=== PATIENT | female | born 1990 | race Caucasian/White ===

== ENCOUNTER → 2019-06-29 16:39 | Outpatient (CLI) | payer BC, SELFPAY ==
[2019-06-29 18:30] LABS: Glucose Challenge Gest 1H 50g 71 mg/dL (70-140)
[2019-06-30 09:25] LABS: Hepatitis C Antibody Non-Reactive (Nonreactive)
[2019-07-02 11:31] LABS: Toxoplasma Gondii IgG < 3.0 IU/mL (0.0-7.1); Toxoplasma Gondii IgM < 3.0 AU/mL (0.0-7.9)
== END ==
PROVIDERS: Family Provider Family Medicine; PCP Family Medicine; Visit Provider Advanced Practice Midwife
DX: Z34.82 Encounter for supervision of other normal pregnancy, second trimester (principal)
CPT/HCPCS: 36415; 82950; 86777; 86778; 86803

== ENCOUNTER → 2019-09-20 09:03 | Outpatient (CLI) | payer BC, SELFPAY ==
[2019-09-20 10:50] LABS: Hematocrit 37.3 % (37-47); Hemoglobin 12.9 g/dL (12.0-15.0); Mean Corp Hgb Conc 34.6 g/dL (32-36); Mean Corpuscular Hgb 30.1 pg (27.0-32.0); Mean Corpuscular Volume 86.9 fL (81-99); Mean Platelet Vol. 11.6 fl (6.2-12.0); Platelet Count 169 K/mm3 (150-450); RBC Distribution Width CV 13.1 % (11.6-14.6); RBC Distribution Width SD 41.1 fl (35.1-43.9); Red Blood Count 4.29 M/mm3 (4.2-5.4); White Blood Count 8.9 K/mm3 (4.4-11.0)
[2019-09-20 11:11] LABS: Glucose Challenge Gest 1H 50g 80 mg/dL (70-140); Thyroid Stim Hormone (TSH) 1.01 uIU/mL (0.358-3.74)
== END ==
PROVIDERS: PCP Family Medicine; Visit Provider Obstetrics & Gynecology
DX: Z34.82 Encounter for supervision of other normal pregnancy, second trimester (principal)
CPT/HCPCS: 36415; 82950; 84443; 85027

== ENCOUNTER → 2019-11-17 | Outpatient (CLI) | payer BC, SELFPAY ==
[2014-09-28 14:47] VITALS: BMI 48.0
== END | disposition home or self-care (01) ==
LOC: LABSPEC 15:06
PROVIDERS: PCP Family Medicine; Referring Provider Obstetrics & Gynecology; Visit Provider Obstetrics & Gynecology
DX: Z36.85 Encounter for antenatal screening for Streptococcus B (principal)
CPT/HCPCS: 87081

== ENCOUNTER 2019-12-11 18:45 | Inpatient (IN) | payer BC, SELFPAY ==
[2014-09-28 14:47] VITALS: BMI 48.0
[2019-12-11] VITALS (11 sets, daily range): BP systolic 114–121; BP diastolic 64–70; PULSE 70–84; TEMP 36.2; O2SAT 96–99; BMI 51.2
[2019-12-11] MEDS: 0.9% Saline Lock 10 ML Syringe IV ×2 (20:05→22:27)
[2019-12-11 20:26] LABS: Absolute Lymphocyte Count 2.05 X10^3/uL (0.83-4.51); Absolute Neutrophil Count 6.4 X10^3/uL (2.0-7.7); Basophil# 0.01 X10^3/uL; Basophil% 0.1 % (0-1); Eosinophil# 0.04 X10^3/uL; Eosinophils% 0.4 % (0-5); Hematocrit 36.3 % (37-47); Hemoglobin 12.5 g/dL (12.0-15.0); Lymphocyte # 2.05 X10^3/ul (4.0); Lymphocyte % 22.3 % (19-41); Mean Corp Hgb Conc 34.4 g/dL (32-36); Mean Corpuscular Hgb 30.2 pg (27.0-32.0); Mean Corpuscular Volume 87.7 fL (81-99); Mean Platelet Vol. 12.1 fl (6.2-12.0); Monocyte# 0.62 X10^3/uL; Monocyte% 6.7 % (0-10); NRBC Flagged by Analyzer 0 % (0-5); Neutrophil # 6.44 X10^3/uL (2.7-7.7); Neutrophil % 70.1 % (47-70); Platelet Count 149 K/mm3 (150-450); RBC Distribution Width CV 12.8 % (11.6-14.6); RBC Distribution Width SD 40.5 fl (35.1-43.9); Red Blood Count 4.14 M/mm3 (4.2-5.4); White Blood Count 9.2 K/mm3 (4.4-11.0)
[2019-12-11] MEDS: Lactated Ringers 1,000 ML 200 ML IV (20:28)
[2019-12-11] MEDS: miSOPROStol 25 MCG TABLET VAGINAL (21:18)
--- NOTE | 2019-12-11 21:23 | HP.PCM_ITS ---
- Problem List (1) 39 weeks gestation of Status: Acute (2) Maternal obesity affecting , antepartum Status: Acute History Date of Admission: 12/11/19 Final FADY: 12/15/19 Final FADY Source: US <20 weeks Gestational age: 39 Weeks and 3 Days History of this : This is a 29 year-old, G [1], P [0], at 39 weeks gestational age here for IOL related to maternal morbid obesity. Allergies amoxicillin Allergy (Verified 12/11/19 19:55) Rash Sulfa (Sulfonamide Antibiotics) Allergy (Verified 12/11/19 19:55) Rash Home Medications: Home Medications Citalopram [Celexa] 20 mg PO DAILY 12/11/19 Vits [Prenatabs FA] 1 tab PO DAILY 12/11/19 Smoking Status: Never smoker Alcohol: None Number of Fetus(es): 1 NST - FHR Rate Baby A Baseline: 130 Variability:: Moderate Accelerations:: 15 x 15 Decelerations:: None NST Reactive:: Yes FHR Category:: Category I Uterine Activity:: irritability History Past Pregnancies: Past Pregnancies: none Labs: Mom's Microbiology 12/11/19 20:30 Mucosa - Nasopharyngeal Coronavirus COVID-19 PCR - Pending Mom's Labs & Results 12/11/19 12/11/19 20:05 20:05 WBC 9.2 RBC 4.14 L Hgb 12.5 Hct 36.3 L MCV 87.7 MCH 30.2 MCHC 34.4 RDW Std Deviation 40.5 RDW Coeff of Brian 12.8 Plt Count 149 L MPV 12.1 H Immature Gran % (Auto) 0.400 Neut % (Auto) 70.1 H Lymph % (Auto) 22.3 Coffee % (Auto) 6.7 Eos % (Auto) 0.4 Baso % (Auto) 0.1 Absolute Neuts (auto) 6.4 Absolute Lymphs (auto) 2.05 Nucleated RBC % 0 Blood Type O POSITIVE Antibody Screen NEGATIVE Course Did the patient receive Yes care? Labs Blood Type: O RH: POSITIVE RPR/VDRL/Syphilis Nonreactive Rubella status Immune HbSAg Negative Date Done: 04/19/19 Chlamydia Negative Gonorrhea Negative HIV/AIDS Non-Reactive Group B Strep: Negative Current Obstetrical History Gestational Diabetes No Incompetent Cervix No Infertility No IUGR No Macrosomia No Hypertension/Pre-eclampsia No Placenta Previa/Abruption No PTL/PROM No Uterine anomaly No Oligohydramnios No Polyhydramnios No Multiple gestation No Past Medical History Asthma No Diabetes No Hypertension No Heart disease No Mitral valve prolapse No Neurologic/Seizure disorder/ No Migraines Kidney disease No Liver disease No Varicosities No Clotting disorders/Hx of DVT Yes: pulmonary [id number] Thyroid Dysfunction No Other medical diseases No Psychiatric disorders No Major trauma No Abnormal PAP smear No Sleep apnea No Mammogram in the last 2 years No Social History Marital Status: Alleged father Liam Sibley Hx Smoking No Smoking Status Never smoker Expected Infant Delivery Method: Spontaneous Vaginal Describe any other labor & delivery plans:: plan on chart Number of Visits: 9 Review of Systems Constitutional: Denies: Chills, Fever, Weight Change HEENT: Denies: Head Aches, Sinus Congestion, Sinus Drainage Cardiovascular: Denies: Chest Pain, Palpitations Respiratory: Denies: Cough, Shortness of breath at rest, Sputum production Gastrointestinal: Denies: Abdominal Pain, Nausea, Vomiting Genitourinary: Denies: Dysuria Musculoskeletal: Denies: Joint Pain, Joint Tenderness Skin: Denies: Rash, Wounds Neurological: Denies: Numbness, Tingling, Focal weakness Psychiatric: Denies: Anxiety, Depression, Homicidal Ideations, Suicidal Ideations Hematologic/ Lymphatic: Denies: Easy Bruising, Easy Bleeding Physical Exam Vitals: Vital Signs Temp Pulse BP Pulse Ox 97.1 F L 71 121/70 H 98 12/11/19 20:33 12/11/19 21:16 12/11/19 19:58 12/11/19 21:16 General: Alert, Oriented x3, No apparent distress HEENT: Atraumatic, Normocephalic. Negative for: Thyromegaly, Lymphadenopathy Cardiovascular: Regular rate, Regular Rhythm Lungs: Clear to auscultation Abdomen: Bowel Sounds Present, Gravid Neurological: Deep Tendon Reflexes 2+/4 and Symmetrical, Neuro grossly intact FORM SETTER: Normal external genitalia. Negative for: Vulvar lesions Estimated gestational size: Appropriate for gestational size Presentation: Cephalic Cervix Dilation (cm): 1 Station: -3 Effacement (%): 25 Assessment/Plan All Active Problems 39 weeks gestation of (Acute) Maternal obesity affecting , antepartum (Acute) This is a 29 year-old, G [1], P [0], at 39 weeks gestational age. Cytotec IOL related to maternal obesity NST Category I, reactive Continuous FM Plan Covid-19 rule out testing preventatively plan on chart Plans in place for Essential Procedure Criteria Procedure Essential: Yes Criteria Note: On 10/03/2019 the [facility] ([facility]) Public Order signed by [facility] Director Tressa Bo M.D., regarding the Management of Non- Essential Surgeries and Procedures for the purpose of preserving Personal Protective Equipment (PPE) and critical hospital capacity and resources within [place] went into effect as of 10/04/2019 at 5:00PM. According to the [facility] Public Order: This action will remain in full force and effect until the State of Emergency declared by the Governor no longer exists or the Director of the [facility] rescinds or modifies this Order.. This [facility] order stated all non-essential or elective surgeries and procedures that utilize PPE should be delayed unless there is undue risk to the current or future health of a patient. After reviewing the aforementioned [facility] Public Order and the patients clinical case, I have determined that the scheduled procedure meets the criteria to go forward. Risk to Patient if Procedure Delayed: Threat to patient's life if surgery or procedure is delayed
[2019-12-12] VITALS (37 sets, daily range): BP systolic 96–215; BP diastolic 55–94; PULSE 62–102; TEMP 36.3–36.7; O2SAT 96–100
[2019-12-12] MEDS: miSOPROStol 50 MCG TABLET VAGINAL ×2 (01:36→07:46)
--- NOTE | 2019-12-12 07:56 | PCM.PN.OB ---
Patient Problems: Active and Suspected Problems 39 weeks gestation of (Acute) Maternal obesity affecting , antepartum (Acute) Subjective: Didn't get much sleep, but overall doing okay. Is cramping, but not painful. Objective: VSS. Uterine irritability noted. FHR baseline 135, +accels, -decels, moderate variability. Category I NST. SVe 1/40/-2 posterior moderate. - Physical Exam Vitals/I&O's: Vital Signs Temp Pulse BP Pulse Ox 97.9 F 82 116/63 98 12/12/19 07:29 12/12/19 07:22 12/12/19 07:22 12/12/19 04:51 Weight: 135.397 kg Body Mass Index (BMI) 51.2 Intake and Output for Last 24 Hours 12/10/19 12/11/19 12/12/19 23:59 23:59 23:59 Intake Total 241.67 / 241.67 Output Total 100 / 100 Balance 141.67 / 141.67 General: Alert, Oriented x3, Cooperative HEENT: Atraumatic, PERRLA, EOMI, Normocephalic Neck: Supple, No JVD, Negative Carotid Bruits Lungs: Clear to auscultation, Normal air movement Cardiovascular: Regular rate, No murmurs Abdomen: Bowel Sounds Present, Soft, Non Tender Extremities: No edema, Capillary Refill Less than 3 Seconds Skin: No rashes, No breakdown Musculoskeletal: No Tenderness to Palpation of Joints or Extremities Neurological: Cranial nerves II-XII grossly intact Psych/Mental Status: Normal Affect, Appropriate Microbiology Past 72 Hours 12/11/19 20:30 Mucosa - Nasopharyngeal Coronavirus COVID-19 PCR - Final Laboratory Results 12/11/19 20:05: WBC 9.2, RBC 4.14 L, Hgb 12.5, Hct 36.3 L, MCV 87.7, MCH 30.2, MCHC 34.4, RDW Std Deviation 40.5, RDW Coeff of Brian 12.8, Plt Count 149 L, MPV 12.1 H, Immature Gran % (Auto) 0.400, Neut % (Auto) 70.1 H, Lymph % (Auto) 22.3, Marshall % (Auto) 6.7, Eos % (Auto) 0.4, Baso % (Auto) 0.1, Absolute Neuts (auto) 6.4, Absolute Lymphs (auto) 2.05, Nucleated RBC % 0 12/11/19 20:05: Blood Type O POSITIVE, Antibody Screen NEGATIVE Current Medications Acetaminophen (Tylenol) 325 - 650 mg PO Q4H PRN PRN PRN Reason: Pain Score 1-3/10 Al Hydroxide/Mg Hydroxide (Mylanta Ii) 15 - 30 ml PO Q4H PRN PRN PRN Reason: INDIGESTION Citric Acid/Sodium Citrate (Bicitra) 30 ml PO X1 PRN PRN Reason: Section Fentanyl Citrate (Sublimaze (100mcg Ampule)) 25 - 50 mcg IV Q2H PRN PRN PRN Reason: Pain Score 4-10/10 Lactated Ringer's () 500 mls @ 999 mls/hr IV .Q31M PRN PRN Reason: Epidural Lactated Ringer's () 500 mls @ 999 mls/hr IV .Q31M PRN PRN Reason: Corrective Measures Lactated Ringer's () 1,000 mls @ 50 mls/hr IV .Q20H [facility] Last Infusion: 12/11/19 22:27 Dose: 0 mls/hr Documented by: Misoprostol (Cytotec) 50 mcg VAGINAL Q6H [facility] Last Admin: 12/12/19 07:46 Dose: 50 mcg Documented by: Ondansetron HCl (Zofran) 4 mg IV Q4H PRN PRN PRN Reason: NAUSEA Prochlorperazine Edisylate (Compazine Iv) 10 mg IV Q6H PRN PRN PRN Reason: NAUSEA Sodium Chloride () 10 - 40 ml IV X1 PRN PRN Reason: SALINE FLUSH Last Admin: 12/11/19 22:27 Dose: 10 ml Documented by: Medical Necessity - Tobacco Use Smoking Status: Never smoker Assessment/Plan All Active Problems 39 weeks gestation of (Acute) Maternal obesity affecting , antepartum (Acute) A/P: IOL continues with third dose of Cytotec to be placed now Will recheck SVE in 5 hours to reassess Expect
[2019-12-12] MEDS: 0.9% Saline Lock 10 ML Syringe IV (14:44)
[2019-12-12] MEDS: Oxytocin 30 units/NS 500 ml 30 UNITS/500 ML IV.SOLN IV (14:48)
--- NOTE | 2019-12-12 16:48 | PN.OBGYN_ITS ---
Patient Problems: Active and Suspected Problems 39 weeks gestation of (Acute) Maternal obesity affecting , antepartum (Acute) Subjective: Reporting some mild cramps, but comfortable. Objective: VSS. No contractions noted. Category I NST. SVE 2/40/-2. - Physical Exam Vitals/I&O's: Vital Signs Temp Pulse BP Pulse Ox 97.7 F L 72 109/76 97 12/12/19 20:42 12/12/19 20:42 12/12/19 20:42 12/12/19 20:42 Weight: 135.397 kg Body Mass Index (BMI) 51.2 Intake and Output for Last 24 Hours 12/10/19 12/11/19 12/12/19 23:59 23:59 23:59 Intake Total 241.67 / 241.67 43.53 / 43.53 Output Total 100 / 100 Balance 141.67 / 141.67 43.53 / 43.53 General: Alert, Oriented x3, Cooperative HEENT: Atraumatic, PERRLA, EOMI, Normocephalic Neck: Supple, No JVD, Negative Carotid Bruits Lungs: Clear to auscultation, Normal air movement Cardiovascular: Regular rate, No murmurs Abdomen: Bowel Sounds Present, Soft, Non Tender Extremities: No edema, Capillary Refill Less than 3 Seconds Skin: No rashes, No breakdown Musculoskeletal: No Tenderness to Palpation of Joints or Extremities Neurological: Cranial nerves II-XII grossly intact Psych/Mental Status: Normal Affect, Appropriate Microbiology Past 72 Hours 12/11/19 20:30 Mucosa - Nasopharyngeal Coronavirus COVID-19 PCR - Final Laboratory Results 12/11/19 20:05: Blood Type O POSITIVE, Antibody Screen NEGATIVE Current Medications Acetaminophen (Tylenol) 325 - 650 mg PO Q4H PRN PRN PRN Reason: Pain Score 1-3/10 Al Hydroxide/Mg Hydroxide (Mylanta Ii) 15 - 30 ml PO Q4H PRN PRN PRN Reason: INDIGESTION Citric Acid/Sodium Citrate (Bicitra) 30 ml PO X1 PRN PRN Reason: Section Fentanyl Citrate (Sublimaze (100mcg Ampule)) 25 - 50 mcg IV Q2H PRN PRN PRN Reason: Pain Score 4-10/10 Lactated Ringer's () 500 mls @ 999 mls/hr IV .Q31M PRN PRN Reason: Epidural Lactated Ringer's () 500 mls @ 999 mls/hr IV .Q31M PRN PRN Reason: Corrective Measures Lactated Ringer's () 1,000 mls @ 50 mls/hr IV .Q20H [facility] Last Admin: 12/12/19 18:43 Dose: Not Given Documented by: Oxytocin/Sodium Chloride () 30 units in 500 mls @ 2 mls/hr IV .Q250H [facility] Last Infusion: 12/12/19 20:33 Dose: 6 mls/hr Documented by: Ondansetron HCl (Zofran) 4 mg IV Q4H PRN PRN PRN Reason: NAUSEA Prochlorperazine Edisylate (Compazine Iv) 10 mg IV Q6H PRN PRN PRN Reason: NAUSEA Sodium Chloride () 10 - 40 ml IV X1 PRN PRN Reason: SALINE FLUSH Last Admin: 12/12/19 14:44 Dose: 10 ml Documented by: Medical Necessity - Tobacco Use Smoking Status: Never smoker Assessment/Plan All Active Problems 39 weeks gestation of (Acute) Maternal obesity affecting , antepartum (Acute) A/P: Will start Pitocin In consultation with attending Dr. Parish, will recheck SVE in 2 hours and AROM if appropriate Category I NST Induction of labor in process
--- NOTE | 2019-12-12 20:45 | PCM.PN.OB ---
Patient Problems: Active and Suspected Problems 39 weeks gestation of (Acute) Maternal obesity affecting , antepartum (Acute) Subjective: Feeling contractions every couple of minutes now. Rating them a 7/10 at their peak. Is wanting epidural at some point and hopes to get some rest tonight. Objective: VSS. AROM with clear fluids. Internal monitors placed. Afterwards SVE 3.5/60/-3 per liquefied petroleum gasfitter. UC Q1.5-2m with Pitocin at 12U. - Physical Exam Vitals/I&O's: Vital Signs Temp Pulse BP Pulse Ox 97.7 F L 72 109/76 97 12/12/19 20:42 12/12/19 20:42 12/12/19 20:42 12/12/19 20:42 Weight: 135.397 kg Body Mass Index (BMI) 51.2 Intake and Output for Last 24 Hours 12/10/19 12/11/19 12/12/19 23:59 23:59 23:59 Intake Total 241.67 / 241.67 43.53 / 43.53 Output Total 100 / 100 Balance 141.67 / 141.67 43.53 / 43.53 General: Alert, Oriented x3, Cooperative HEENT: Atraumatic, PERRLA, EOMI, Normocephalic Neck: Supple, No JVD, Negative Carotid Bruits Lungs: Clear to auscultation, Normal air movement Cardiovascular: Regular rate, No murmurs Abdomen: Bowel Sounds Present, Soft, Non Tender Extremities: No edema, Capillary Refill Less than 3 Seconds Skin: No rashes, No breakdown Musculoskeletal: No Tenderness to Palpation of Joints or Extremities Neurological: Cranial nerves II-XII grossly intact Psych/Mental Status: Normal Affect, Appropriate Microbiology Past 72 Hours 12/11/19 20:30 Mucosa - Nasopharyngeal Coronavirus COVID-19 PCR - Final Laboratory Results 12/11/19 20:05: Blood Type O POSITIVE, Antibody Screen NEGATIVE Current Medications Acetaminophen (Tylenol) 325 - 650 mg PO Q4H PRN PRN PRN Reason: Pain Score 1-3/10 Al Hydroxide/Mg Hydroxide (Mylanta Ii) 15 - 30 ml PO Q4H PRN PRN PRN Reason: INDIGESTION Citric Acid/Sodium Citrate (Bicitra) 30 ml PO X1 PRN PRN Reason: Section Fentanyl Citrate (Sublimaze (100mcg Ampule)) 25 - 50 mcg IV Q2H PRN PRN PRN Reason: Pain Score 4-10/10 Lactated Ringer's () 500 mls @ 999 mls/hr IV .Q31M PRN PRN Reason: Epidural Lactated Ringer's () 500 mls @ 999 mls/hr IV .Q31M PRN PRN Reason: Corrective Measures Lactated Ringer's () 1,000 mls @ 50 mls/hr IV .Q20H [facility] Last Admin: 12/12/19 18:43 Dose: Not Given Documented by: Oxytocin/Sodium Chloride () 30 units in 500 mls @ 2 mls/hr IV .Q250H [facility] Last Infusion: 12/12/19 20:33 Dose: 6 mls/hr Documented by: Ondansetron HCl (Zofran) 4 mg IV Q4H PRN PRN PRN Reason: NAUSEA Prochlorperazine Edisylate (Compazine Iv) 10 mg IV Q6H PRN PRN PRN Reason: NAUSEA Sodium Chloride () 10 - 40 ml IV X1 PRN PRN Reason: SALINE FLUSH Last Admin: 12/12/19 14:44 Dose: 10 ml Documented by: Medical Necessity - Tobacco Use Smoking Status: Never smoker Assessment/Plan All Active Problems 39 weeks gestation of (Acute) Maternal obesity affecting , antepartum (Acute) A/P: UC 6 in 10 minutes. Decrease Pitocin from 12u to 6u Plans epidural, okay when needed Plan to recheck SVE at time of epidural or 0000 Discussed epidural, IV Fentanyl, positions with epidural in, and laboring down Expect
[2019-12-12] MEDS: Lactated Ringers 500 ML 999 ML IV (21:28)
[2019-12-12] MEDS: fentaNYL-bupivacaine (epidural) 100 ML BAG EPIDURAL (22:26)
[2019-12-13] VITALS (34 sets, daily range): BP systolic 87–123; BP diastolic 48–67; PULSE 67–157; RESP 18; TEMP 36.2–37.4; O2SAT 94–98
[2019-12-13] MEDS: Lactated Ringers 1,000 ML 200 ML IV ×2 (00:10→06:00)
[2019-12-13] MEDS: fentaNYL-bupivacaine (epidural) 100 ML BAG EPIDURAL ×2 (02:49→07:29)
[2019-12-13] MEDS: Lactated Ringers 500 ML 999 ML IV ×2 (02:49→06:19)
[2019-12-13] MEDS: Ondansetron 4 MG/2 ML Vial IV ×2 (03:16→08:37)
--- NOTE | 2019-12-13 07:00 | PN.OBGYN_ITS ---
Patient Problems: Active and Suspected Problems 39 weeks gestation of (Acute) Maternal obesity affecting , antepartum (Acute) Subjective: Got rest overnight and feeling well this morning. Epidural is working great with no pain or pressure felt at this time. Doing well and excited. Requesting check writer salesperson to be with her for pushing. Objective: BP has ran borderline low overnight. At 0331 check writer salesperson was notified that BP was 88/49 which resolved with IV fluid bolus. At this time decelerations were noted which were recurrent and prolonged. Pitocin turned off at 0319 which resolved Category II tracing. At 0618 BP was again 87/48. Patient asymptomatic, but IV bolus given which resolved the hypotension. Nutritionalist at bedside 0650 with Category I NST at this time with UC Q5-7 minutes. Pitocin restarted at 1u. SVE /-1. - Physical Exam Vitals/I&O's: Vital Signs Temp Pulse BP Pulse Ox 97.4 F L 90 102/52 L 95 12/13/19 07:14 12/13/19 07:14 12/13/19 07:14 12/13/19 06:11 Weight: 135.397 kg Body Mass Index (BMI) 51.2 Intake and Output for Last 24 Hours 12/11/19 12/12/19 12/13/19 23:59 23:59 23:59 Intake Total 241.67 / 241.67 562.18 / 562.18 2966.37 / 2966.37 Output Total 100 / 100 200 / 200 150 / 150 Balance 141.67 / 141.67 362.18 / 362.18 2816.37 / 2816.37 General: Alert, Oriented x3, Cooperative HEENT: Atraumatic, PERRLA, EOMI, Normocephalic Neck: Supple, No JVD, Negative Carotid Bruits Lungs: Clear to auscultation, Normal air movement Cardiovascular: Regular rate, No murmurs Abdomen: Bowel Sounds Present, Soft, Non Tender Extremities: No edema, Capillary Refill Less than 3 Seconds Skin: No rashes, No breakdown Musculoskeletal: No Tenderness to Palpation of Joints or Extremities Neurological: Cranial nerves II-XII grossly intact Psych/Mental Status: Normal Affect, Appropriate Microbiology Past 72 Hours 12/11/19 20:30 Mucosa - Nasopharyngeal Coronavirus COVID-19 PCR - Final Current Medications Acetaminophen (Tylenol) 325 - 650 mg PO Q4H PRN PRN PRN Reason: Pain Score 1-3/10 Al Hydroxide/Mg Hydroxide (Mylanta Ii) 15 - 30 ml PO Q4H PRN PRN PRN Reason: INDIGESTION Citric Acid/Sodium Citrate (Bicitra) 30 ml PO X1 PRN PRN Reason: Section Ephedrine Sulfate () 10 mg IV Q10M PRN PRN Reason: hypotension Ephedrine Sulfate () 10 mg IM Q30M PRN PRN Reason: hypotension Fentanyl Citrate (Sublimaze (100mcg Ampule)) 25 - 50 mcg IV Q2H PRN PRN PRN Reason: Pain Score 4-10/10 Fentanyl/Bupivacaine/Sodium Chlor () 0 ml EPIDURAL UD [facility]; Protocol Last Admin: 12/13/19 07:29 Dose: 100 ml Documented by: Lactated Ringer's () 500 mls @ 999 mls/hr IV .Q31M PRN PRN Reason: Epidural Last Infusion: 12/12/19 21:59 Dose: Infused Documented by: Lactated Ringer's () 500 mls @ 999 mls/hr IV .Q31M PRN PRN Reason: Corrective Measures Last Infusion: 12/13/19 06:50 Dose: Infused Documented by: Lactated Ringer's () 1,000 mls @ 50 mls/hr IV .Q20H [facility] Last Infusion: 12/13/19 06:50 Dose: 200 mls/hr Documented by: Oxytocin/Sodium Chloride () 30 units in 500 mls @ 2 mls/hr IV .Q250H [facility] Last Infusion: 12/13/19 07:28 Dose: 2 mls/hr Documented by: Naloxone HCl 4 mg/ Dextrose 504 mls @ 0 mls/hr IV .Q0M PRN; Protocol PRN Reason: To maintain Resp. rate >10 Nalbuphine HCl (Nubain) 5 mg IV Q3H PRN PRN PRN Reason: ITCHING Naloxone HCl (Narcan) 0.02 mg IV Q1M PRN PRN Reason: RR< 10 AND PT UNRESPONSIVE Ondansetron HCl (Zofran) 4 mg IV Q4H PRN PRN PRN Reason: NAUSEA Last Admin: 12/13/19 03:16 Dose: 4 mg Documented by: Prochlorperazine Edisylate (Compazine Iv) 10 mg IV Q6H PRN PRN PRN Reason: NAUSEA Sodium Chloride () 10 - 40 ml IV X1 PRN PRN Reason: SALINE FLUSH Last Admin: 12/12/19 14:44 Dose: 10 ml Documented by: Medical Necessity - Tobacco Use Smoking Status: Never smoker Assessment/Plan All Active Problems 39 weeks gestation of (Acute) Maternal obesity affecting , antepartum (Acute) A/P: in active labor SVE 7/-1 FHR baseline 140, +accels, -decels, moderate variability Pitocin restarted at 1u and to increase by 1u Recheck SVE 0830 Plan to labor down and have check writer salesperson present for pushing Plans in place for
[2019-12-13] MEDS: Oxytocin 30 units/NS 500 ml 30 UNITS/500 ML IV.SOLN 334 UNITS IV (11:24)
--- NOTE | 2019-12-13 11:50 | PCM.OPRPT ---
Problem List (1) 39 weeks gestation of Status: Acute (2) Maternal obesity affecting , antepartum Status: Acute Vaginal Delivery Maternal Presentation: Medically Indicated Induction Method of Induction: Cytotec Medical Reason for Induction: Maternal Medical Condition: list: - Morbid obesity Amniotic Membrane Rupture Type: Artificial Amniotic Fluid Description: Clear Final FADY: 12/15/19 Final FADY Source: [place] <20 weeks Gestational age: 39 Weeks and 5 Days Date of Procedure: 12/13/19 Pre-Operative Diagnosis: IOL Post-Operative Diagnosis: Surgery/ Procedure Performed: Spontaneous Vaginal Delivery Anesthesiologist: Anali Ward Type of Anesthesia: Epidural Description of Procedure: Patient complete 100/0 at 0830. Decision to labor down. At 0930 10/+1 and began pushing. Patient pushed well for two hours to deliver head in direct PAT. Loose nuchal x1 reduced at perineum. Shoulders delivered spontaneously followed by body. Terminal meconium noted. The female infant was placed on the maternal abdomen and further attended by nursery personnel with bulb suction and stimulation. The cord was doubly clamped then cut by FOB under CNM supervision at approximately 3 minutes of life. Cod blood collected. IV Pitocin started per protocol. With gentle cord traction spontaneous delivery of placenta. Upon inspection placenta noted to appear intact with a 3 vessel cord. Fundal massage given, noted to be firm,U/2 and midline.First degree perineal laceration noted. Repaired with 3.0 vicryl rapide on a double under epidural anesthesia. EBL 150. Sponge count correct x2. Apgars 8/9. Presentation: PAT Placental Delivery Description: Spontaneous Placenta Disposition: [facility] Cord Entanglement: Around neck x 1, loose Drain: Gonzalez to straight drain Estimated Blood Loss: 150 Infant A gender: Female (1 minute): 8 (5 minute): 9 Episiotomy Description: None Laceration: Perineal Extension/lac, 1st degree Medications given after delivery: IV Pitocin
[2019-12-14] MEDS: Ibuprofen 600 MG Tablet PO ×2 (00:39→08:57)
[2019-12-14 00:41] VITALS: BP 108/74; PULSE 87; RESP 18; TEMP 36.7
[2019-12-14 04:58] VITALS: BP 112/62; PULSE 78; RESP 18; TEMP 36.6
[2019-12-14 08:28] VITALS: BP 111/72; PULSE 70; RESP 16; TEMP 36.4; O2SAT 98
[2019-12-14] MEDS: Aspirin 81 MG TAB.CHEW PO (08:52)
--- NOTE | 2019-12-14 08:55 | DCINST_ITS ---
Discharge Diet: No Restrictions Discharge Activity: Return to Normal Activity, May not drive while taking narcotic pain medications., May Shower May resume sexual activity in: 4-6 weeks Additional Activity Instructions:: Nothing in the vagina for 4-6 weeks. You may return to work/school in 6 weeks. Call your doctor if your incision/area has: Continuous Slow Oozing, Sudden Increased Bleeding, Increased Pain/ Swelling, Increased Redness, Foul Smelling Discharge Additional Instructions: If you experience any of the following, contact your healthcare provider. * Bleeding that soaks a pad every hour for 2 hours * Fever 100.4 or higher * Unrelieved incision or abdominal pain * Swelling, redness, discharge or bleeding from your incision or episiotomy site * Your incision begins to separate * Problems urinating (including inability to urinate or burning while urinating). * Visual changes * Severe headache * Flu-like symptoms * Pain or redness in one of both of your breasts * Pain, warmth, tenderness or swelling in your legs, especially the calf area * Frequent nausea and vomiting * Symptoms of depression or anxiety If you experience any of the following, call 911 or go to the nearest Emergency Room. * Chest pain * Problems breathing * Seizure activity * Partial or complete paralysis of a body part, slurred speech, weakness or drooping of the face, or a sudden inability to walk or hold your balance Allergies/Adverse Reactions: Allergies amoxicillin Allergy (Verified 12/11/19 19:55) Rash Sulfa (Sulfonamide Antibiotics) Allergy (Verified 12/11/19 19:55) Rash Medications to take at Discharge Citalopram [Celexa] 20 mg PO DAILY 12/11/19 Vits [Prenatabs FA] 1 tab PO DAILY 12/11/19 Valacyclovir HCl [Valtrex] 500 mg PO DAILY 12/12/19 Acetaminophen [Tylenol] 1,000 mg PO Q8H PRN PRN tablet 12/14/19 Aspirin [Aspirin, Baby] 81 mg PO DAILY@0800 tab.chew 12/14/19 Ibuprofen [Motrin] 600 mg PO Q6H PRN PRN tablet 12/14/19 Please Follow Up With: Litzy Rossi CNM When: Call to make an appointment with your CNM in 2 weeks for telehealth and 6 weeks for routine PP. Primary Care Physician: Lyndon Hirsch MD [Primary Care Provider] - Test Results: Test results from this visit will be discussed in further detail at your follow- up appointment, if applicable.
[2019-12-14 13:50] VITALS: BP 108/63; PULSE 66; RESP 16; TEMP 36.7; O2SAT 97
== END 2019-12-14 15:45 | disposition home or self-care (01) | DRG 807 ==
PROVIDERS: Admitting Provider Obstetrics & Gynecology; PCP Family Medicine; Referring Provider Obstetrics & Gynecology; Visit Provider Obstetrics & Gynecology
DX: O99.214 Obesity complicating childbirth (principal); O69.81X0 Labor and delivery complicated by cord around neck, without compression, not applicable or unspecified; O76 Abnormality in fetal heart rate and rhythm complicating labor and delivery; O77.0 Labor and delivery complicated by meconium in amniotic fluid; O70.0 First degree perineal laceration during delivery; E66.01 Morbid (severe) obesity due to excess calories; Z79.82 Long term (current) use of aspirin; Z79.899 Other long term (current) drug therapy; Z86.711 Personal history of pulmonary embolism; Z3A.39 39 weeks gestation of pregnancy; Z37.0 Single live birth
CPT/HCPCS: 59025; 59050; 85025; 86850; 86900; 86901; 87635; 99218; G2023; J7120; A4216; G0378; J2405; U0004

== ENCOUNTER → 2022-07-07 | Outpatient (CLI) | payer BC, SELFPAY ==
[2022-07-07 13:27] LABS: Absolute Lymphocyte Count 1.61 X10^3/uL (0.83-4.51); Absolute Neutrophil Count 5.4 X10^3/uL (2.0-7.7); Basophil# 0.03 X10^3/uL; Basophil% 0.4 % (0-1); Eosinophil# 0.03 X10^3/uL; Eosinophils% 0.4 % (0-5); Hematocrit 37.5 % (37-47); Hemoglobin 12.9 g/dL (12.0-15.0); Lymphocyte # 1.61 X10^3/ul (0.83-4.51); Lymphocyte % 21.5 % (19-41); Mean Corp Hgb Conc 34.4 g/dL (32-36); Mean Corpuscular Hgb 29.2 pg (27.0-32.0); Mean Corpuscular Volume 84.8 fL (81-99); Mean Platelet Vol. 11.9 fl (6.2-12.0); Monocyte% 5.3 % (0-10); NRBC Flagged by Analyzer 0 % (0-5); Neutrophil # 5.39 X10^3/uL (2.7-7.7); Neutrophil % 72.1 % (47-70); Platelet Count 235 K/mm3 (150-450); RBC Distribution Width CV 12.3 % (11.6-14.6); RBC Distribution Width SD 37.6 fl (35.1-43.9); Red Blood Count 4.42 M/mm3 (4.2-5.4); White Blood Count 7.5 K/mm3 (4.4-11.0)
[2022-07-07 14:07] LABS: HIV - WCH Non-Reactive (Nonreactive); Hepatitis B Surface Antigen Non-Reactive (Nonreactive); Hepatitis C Antibody Non-Reactive (Nonreactive); Rubella IgG Reactive (Nonreactive); Syphilis Antibodies Non-reactive
[2022-07-07 15:16] LABS: Chlamydia Trachomatis by PCR Negative (Negative); Neisserai gonorrhoeae by PCR Negative (Negative); Probe Check PASS; Sample Adequacy Control PASS; Specimen Processing Control PASS
[2022-07-09 16:25] LABS: V-Zoster IgG (Immunity) 1901 index (Immune >165)
[2022-07-16 21:05] LABS: HPV APTIMA, High Risk Negative (Negative)
== END | disposition home or self-care (01) ==
LOC: WOBLAB 11:41
PROVIDERS: PCP Family Medicine; Visit Provider Student in an Organized Health Care Education/Training Program
DX: Z34.81 Encounter for supervision of other normal pregnancy, first trimester (principal)
CPT/HCPCS: 36415; 85025; 86703; 86762; 86780; 86787; 86803; 87086; 87088; 87340; 87491; 87591; 87624; 88175; G0145

== ENCOUNTER → 2022-08-04 | Outpatient (CLI) | payer BC, SELFPAY ==
[2022-08-04 15:04] LABS: Glucose Challenge Gest 1H 50g 90 mg/dL (70-140)
== END | disposition home or self-care (01) ==
LOC: WOBLAB 14:05
PROVIDERS: PCP Family Medicine; Visit Provider Student in an Organized Health Care Education/Training Program
DX: Z34.81 Encounter for supervision of other normal pregnancy, first trimester (principal)
CPT/HCPCS: 36415; 82950

== ENCOUNTER → 2022-11-24 | Outpatient (CLI) | payer BC, SELFPAY ==
[2022-11-24 17:06] LABS: Hematocrit 35.5 % (37-47); Mean Corp Hgb Conc 33.8 g/dL (32-36); Mean Corpuscular Hgb 29.1 pg (27.0-32.0); Mean Corpuscular Volume 86.2 fL (81-99); Mean Platelet Vol. 11.8 fl (6.2-12.0); Platelet Count 173 K/mm3 (150-450); RBC Distribution Width CV 13.7 % (11.6-14.6); RBC Distribution Width SD 42.5 fl (35.1-43.9); Red Blood Count 4.12 M/mm3 (4.2-5.4); White Blood Count 8.6 K/mm3 (4.4-11.0)
[2022-11-24 17:33] LABS: Glucose Challenge Gest 1H 50g 86 mg/dL (70-140)
[2022-11-24 17:57] LABS: Syphilis Antibodies Non-reactive
== END | disposition home or self-care (01) ==
LOC: WOBLAB 16:23
PROVIDERS: PCP Family Medicine; Visit Provider Student in an Organized Health Care Education/Training Program
DX: Z34.82 Encounter for supervision of other normal pregnancy, second trimester (principal)
CPT/HCPCS: 36415; 82950; 85027; 86780

== ENCOUNTER → 2023-01-12 | Outpatient (CLI) | payer BC, SELFPAY ==
[2023-01-12 10:02] LABS: Absolute Lymphocyte Count 1.66 X10^3/uL (0.83-4.51); Absolute Neutrophil Count 6.4 X10^3/uL (2.0-7.7); Basophil# 0.02 X10^3/uL; Basophil% 0.2 % (0-1); Eosinophil# 0.04 X10^3/uL; Eosinophils% 0.5 % (0-5); Hematocrit 36.4 % (37-47); Hemoglobin 12.4 g/dL (12.0-15.0); Lymphocyte # 1.66 X10^3/ul (0.83-4.51); Lymphocyte % 18.9 % (19-41); Mean Corp Hgb Conc 34.1 g/dL (32-36); Mean Corpuscular Hgb 28.8 pg (27.0-32.0); Mean Corpuscular Volume 84.7 fL (81-99); Mean Platelet Vol. 10.8 fl (6.2-12.0); Monocyte# 0.57 X10^3/uL; Monocyte% 6.5 % (0-10); NRBC Flagged by Analyzer 0 % (0-5); Neutrophil # 6.44 X10^3/uL (2.7-7.7); Neutrophil % 73.6 % (47-70); Platelet Count 167 K/mm3 (150-450); RBC Distribution Width CV 13.6 % (11.6-14.6); RBC Distribution Width SD 41.9 fl (35.1-43.9); White Blood Count 8.8 K/mm3 (4.4-11.0)
== END | disposition home or self-care (01) ==
LOC: WOBLAB 09:47
PROVIDERS: PCP Family Medicine; Visit Provider Student in an Organized Health Care Education/Training Program
DX: Z34.83 Encounter for supervision of other normal pregnancy, third trimester (principal); Z36.85 Encounter for antenatal screening for Streptococcus B; Z3A.00 Weeks of gestation of pregnancy not specified
CPT/HCPCS: 36415; 85025; 87077; 87081; 87186

== ENCOUNTER 2023-01-27 06:57 | Inpatient (IN) | payer BC, SELFPAY ==
[2023-01-27] VITALS (69 sets, daily range): BP systolic 87–135; BP diastolic 50–97; PULSE 62–137; TEMP 36.4–37.6; O2SAT 78–100; BMI 54.1
--- NOTE | 2023-01-27 07:26 | HP.PCM.OB_ITS ---
History and Physical Date of Admission: 01/27/23 HPI: 32-year-old G2, P1 at 39/0 weeks, FADY 02/03/2023 by LMP, admitted for induction of labor at term. Denies regular contractions, leaking fluid, vaginal bleeding. Reports movement. Denies headache or vision changes, chest pain or shortness of breath, nausea or vomiting, diarrhea constipation, fevers or chills. 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 Class III obesity 2. History of HSV Surgical history: 1. Diagnostic laparoscopy in 2011 2. Galliano tooth extraction Family history: Denies history of blood clots or bleeding disorders Allergies: 1. Amoxicillin 2. Sulfa Medications: 1. Aspirin 81 mg daily 2. Citalopram 20 mg 3. Valtrex 4. vitamin Social history: Denies tobacco, alcohol, drug use Review of system: Negative otherwise stated above Physical exam: Blood pressure BP 98/53, HR 74 General: No acute distress HEENT: Normal cephalic/atraumatic, PERRLA Cardiorespiratory: No increased effort Abdomen: Soft, nontender, gravid Extremities: No edema Neurologic: Cranial nerves II through XII grossly intact, no focal deficits Musculoskeletal: Moves all extremities equally Sterile speculum exam: No HSV lesions on vulva, vagina, cervix Cervical exam: 2.5/60/-3 heart rate: 135/mod alison/+accel/no decel [place]: quiet quiet Assessment/plan: 32-year-old G2, P1 at 39/0 weeks, FADY 02/03/2023 by LMP, admitted for induction of labor at term. complicated by: Class III obesity, history of HSV (no recent outbreaks, on suppression, no prodromal sym ptoms today), history of depression. ?Admit for induction of labor with Pitocin ?Vancomycin for GBS prophylaxis ? Okay for epidural at any time patient desires ? Plan for AROM likely this afternoon ?Continue home meds
[2023-01-27] MEDS: Lactated Ringers 1,000 ML 50 ML IV (08:33)
[2023-01-27] MEDS: Oxytocin 15 Units/NS 250ml 15 UNITS/250 ML IV.SOLN 2 UNITS IV (08:46)
[2023-01-27 09:00] LABS: Absolute Lymphocyte Count 1.47 X10^3/uL (0.83-4.51); Absolute Neutrophil Count 5.1 X10^3/uL (2.0-7.7); Basophil# 0.02 X10^3/uL; Basophil% 0.3 % (0-1); Eosinophil# 0.04 X10^3/uL; Eosinophils% 0.6 % (0-5); Hematocrit 32.7 % (37-47); Hemoglobin 11.5 g/dL (12.0-15.0); Lymphocyte # 1.47 X10^3/ul (0.83-4.51); Lymphocyte % 20.7 % (19-41); Mean Corp Hgb Conc 35.2 g/dL (32-36); Mean Corpuscular Hgb 29.4 pg (27.0-32.0); Mean Corpuscular Volume 83.6 fL (81-99); Mean Platelet Vol. 11.6 fl (6.2-12.0); Monocyte# 0.41 X10^3/uL; Monocyte% 5.8 % (0-10); NRBC Flagged by Analyzer 0 % (0-5); Neutrophil # 5.13 X10^3/uL (2.7-7.7); Neutrophil % 72.3 % (47-70); Platelet Count 151 K/mm3 (150-450); RBC Distribution Width SD 42.6 fl (35.1-43.9); Red Blood Count 3.91 M/mm3 (4.2-5.4); White Blood Count 7.1 K/mm3 (4.4-11.0)
[2023-01-27 10:22] LABS: Syphilis Antibodies Non-reactive
--- NOTE | 2023-01-27 12:44 | PCM.PN.OB ---
Subjective Subjective Patient resting comfortably in bed. No complaints Objective Data Objective Data Vital Signs: Vital Signs Temp Pulse BP 97.8 F 62 99/51 L 01/27/23 12:15 01/27/23 11:06 01/27/23 11:06 Weight: 315 lb 0.649 oz Body Mass Index (BMI) 54.1 Intake & Output: Intake and Output for Last 24 Hours 01/25/23 01/26/23 01/27/23 23:59 23:59 23:59 Intake Total 552.00 / 552.00 Balance 552.00 / 552.00 Lab / Micro Data 01/27/23 08:33 Labs: Laboratory Results - last 24 hr 01/27/23 08:33: WBC 7.1, RBC 3.91 L, Hgb 11.5 L, Hct 32.7 L, MCV 83.6, MCH 29.4, MCHC 35.2, RDW Std Deviation 42.6, RDW Coeff of Brian 14.0, Plt Count 151, MPV 11.6, Immature Gran % (Auto) 0.300, Neut % (Auto) 72.3 H, Lymph % (Auto) 20.7, Hitchcock % (Auto) 5.8, Eos % (Auto) 0.6, Baso % (Auto) 0.3, Absolute Neuts (auto) 5.1, Absolute Lymphs (auto) 1.47, Nucleated RBC % 0, Syphilis Total Ab Non-reactive, Blood Type O POSITIVE, Antibody Screen NEGATIVE Physical Exam Const alert, oriented x3, no apparent distress, average body habitus, healthy appearing and well nourished HEENT normocephalic and moist oral mucous membranes Eyes PERRL Neck full ROM Resp normal respiratory effort, no retractions and no use of accessory muscles GI GI Narrative: Soft, nontender, gravid Narrative: Cervical exam: 60/-3 Extremity normal to inspection, full ROM and no clubbing, cyanosis or edema Neuro moves all extremities and no focal motor deficits Psych mental status grossly normal, affect normal, speech normal and activity/motor behavior normal Assessment & Plan (1) : PLAN: Called by nursing with decelerations on heart rate tracing and discuss arriving to AROM although initial vancomycin dosing not complete, 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 Patient seen and examined. AROM clear fluid. FSE and IUPC placed. We will continue current management
[2023-01-27 13:41] LABS: Anion Gap 8 (5-15); BUN 6 mg/dL (7-18); BUN/Creat Ratio 10.2 RATIO (10-20); Calcium,Total 8.4 mg/dL (8.5-10.1); Chloride 110 mmol/L (98-107); Creatinine, Serum 0.59 mg/dL (0.55-1.02); EST Glomerular Filtration Rate 125 mL/min (>60); Est Glom Filt Rate - Afr Amer 151 mL/min (>60); Estimated Creatinine Clearance 116.02 ml/min; Glucose 84 mg/dL (74-106); Potassium 3.9 mmol/L (3.5-5.1); Sodium Level 140 mmol/L (136-145)
[2023-01-27] MEDS: LACTATED RINGERS 500 ML 999 ML IV ×2 (14:09→15:35)
[2023-01-27] MEDS: fentaNYL-bupivacaine (epidural) 100 ML BAG EPIDURAL ×3 (15:09→23:48)
--- NOTE | 2023-01-27 16:11 | PCM.RX.CS ---
Consult Antibiotic Management Pharmacy has been consulted to manage selected antiobiotic: Vancomycin Type of Intervention Type of Consult: New start Suspected Infection Suspected Infection: Other Labs Labs: Sodium 140 mmol/L (136-145) 01/27/23 08:33 Potassium 3.9 mmol/L (3.5-5.1) 01/27/23 08:33 Chloride 110 mmol/L (98-107) H 01/27/23 08:33 Carbon Dioxide 22.0 mmol/L (21.0-32.0) 01/27/23 08:33 Anion Gap 8 (5-15) 01/27/23 08:33 BUN 6 mg/dL (7-18) L 01/27/23 08:33 Creatinine 0.59 mg/dL (0.55-1.02) 01/27/23 08:33 Est GFR (MDRD) Af Amer 151 mL/min (>60) 01/27/23 08:33 Est GFR (MDRD) Non-Af 125 mL/min (>60) 01/27/23 08:33 BUN/Creatinine Ratio 10.2 RATIO (10-20) 01/27/23 08:33 Glucose 84 mg/dL (74-106) 01/27/23 08:33 Pharmacy Plan for Drug Dosing Pharmacy Plan for Drug Dosing: NEW START IV VANCOMYCIN Consulting Physician: Ariel MCNEILL Indication: GBS (+) Goal Trough: 10-15 SrCr: 0.59 MG/DL CrCl: 187.7 ML/MIN (USING ADJUSTED BW) Vancomycin Dose: WILL START 2000MG IV Q8 (MAX DOSE). TROUGH ORDERED PRIOR TO 4TH DOSE IF PATIENT HAS NOT DELVIERED AT THAT TIME. Pending Level: 01/28/23 @ 6966 Pharmacy Service will continue to monitor and adjust dosing as required.
[2023-01-27] MEDS: Lactated Ringers 1,000 ML 200 ML IV (19:16)
[2023-01-28] VITALS (35 sets, daily range): BP systolic 86–117; BP diastolic 47–65; PULSE 65–96; RESP 16–18; TEMP 36.4–36.8; O2SAT 95–98
[2023-01-28] MEDS: Lactated Ringers 1,000 ML 200 ML IV (01:12)
[2023-01-28] MEDS: 0.9% Saline Lock 10 ML Syringe IV (01:12)
[2023-01-28] MEDS: Oxytocin 10 UNITS/ML Vial IM (01:33)
[2023-01-28] MEDS: Oxytocin 15 Units/NS 250ml 15 UNITS/250 ML IV.SOLN 83 UNITS IV (01:34)
--- NOTE | 2023-01-28 01:41 | EX.PCM.OBRPT ---
Vaginal Delivery Findings Description of Procedure: Normal spontaneous vaginal livery of a viable male infant, vertex YOKO. Head and shoulders delivered with ease. Cord clamped and cut. Baby handed off to patient. Placenta delivered intact via cord traction and fundal massage. IM and IV oxytocin given per protocol. No lacerations noted. EBL 250 cc Apgars 9/9
[2023-01-28] MEDS: Citalopram 20 MG Tablet PO (10:43)
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
[2023-01-28] MEDS: Acetaminophen 500 MG Tablet 1000 MG PO ×2 (13:31→20:55)
--- NOTE | 2023-01-28 16:27 | NURSING ---
Pt unable to stand up until 1529 due to her epidural not being worn off yet - pt dangling at side of bed during morning.
[2023-01-29 01:00] VITALS: BP 123/65; PULSE 64; RESP 17; TEMP 36.3; O2SAT 97
[2023-01-29 08:15] VITALS: BP 111/17; PULSE 62; RESP 18; TEMP 36.2; O2SAT 97
--- NOTE | 2023-01-29 08:20 | DS.PCM_ITS ---
Discharge Summary Date of Admission: 01/27/23 Date of Discharge: 01/29/23 Summary: Patient arrived on 01/27/2023 for induction of labor at term. Subsequently delivered vaginally on 01/28/2023. Routine recovery. Discharged home on 01/29/2023 Meaningful Use Info Meaningful Use Diagnoses (Choose all that apply): None applicable Discharge Plan Admission Admit Date/Time: 01/27/23 06:57 Primary Reason for Your Visit: Induction of labor Attending Provider: Jose Jacob Primary Care Provider: Care Physician,No Primary Instructions Additional Instructions / Restrictions: Regular diet. Okay to shower. Weightbearing as tolerated. No intercourse for 4 to 6 weeks. Call if fevers, chills, chest pain, shortness of breath. Follow- up 4 to 6 weeks Discharge Orders/Prescriptions Prescriptions: No Action citalopram 20 MG tablet 20 mg PO DAILY Hold Instructions: no longer taking vit,[id number] 1 TABLET tablet 1 tab PO DAILY valacyclovir 500 MG tablet 500 mg PO DAILY acetaminophen 500 MG tablet 1,000 mg PO Q8H PRN PRN (Reason: Pain Score 1-3/10) 0RF Hold Instructions: no longer taking aspirin 81 MG tablet,chewable 81 mg PO DAILY@0800 0RF Hold Instructions: no longer taking ibuprofen 600 MG tablet 600 mg PO Q6H PRN PRN (Reason: Pain Score 1-3/10) 0RF Hold Instructions: not taking Referrals / Follow Up: Care Physician,No Primary [Primary Care Provider] - Disposition Disposition (needs filled in before D/C Order can be placed): Home, Self Care
--- NOTE | 2023-01-29 08:21 | PCM.PN.OB ---
Subjective Subjective No overnight complaints Objective Data Objective Data Vital Signs: Vital Signs Temp Pulse Resp BP Pulse Ox O2 Del Method 97.3 F L 64 17 123/65 H 97 Room Air 01/29/23 01:00 01/29/23 01:00 01/29/23 01:00 01/29/23 01:00 01/29/23 01:00 01/29/23 01:00 Oxygen Delivery Method Room Air Weight: 315 lb 0.649 oz Body Mass Index (BMI) 54.1 Intake & Output: Intake and Output for Last 24 Hours 01/27/23 01/28/23 01/29/23 23:59 23:59 23:59 Intake Total 3955.03 / 3955.03 1521.64 / 1521.64 Output Total 1850 / 1850 2895 / 2895 Balance 2105.03 / 2105.03 -1373.36 / -1373.36 Lab / Micro Data 01/27/23 08:33 01/27/23 08:33 Physical Exam Const alert, oriented x3, no apparent distress, average body habitus, healthy appearing and well nourished HEENT normocephalic and moist oral mucous membranes Eyes PERRL Neck full ROM Resp normal respiratory effort, no retractions and no use of accessory muscles GI GI Narrative: Soft, nontender, uterus firm and below umbilicus Extremity normal to inspection and full ROM Neuro moves all extremities and no focal motor deficits Psych mental status grossly normal, affect normal, speech normal and activity/motor behavior normal Assessment & Plan (1) Vaginal delivery: PLAN: day 1. Breast-feeding. Pain well controlled. 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
[2023-01-29] MEDS: Citalopram 20 MG Tablet PO (09:57)
[2023-01-29] MEDS: Acetaminophen 500 MG Tablet 1000 MG PO (09:57)
[2023-01-29 13:49] VITALS: BP 114/74; RESP 16; TEMP 36.1; O2SAT 98
== END 2023-01-29 14:09 | disposition home or self-care (01) | DRG 806 ==
PROVIDERS: Student in an Organized Health Care Education/Training Program; Admitting Provider Obstetrics & Gynecology; Referring Provider Obstetrics & Gynecology; Visit Provider Obstetrics & Gynecology
DX: O99.214 Obesity complicating childbirth (principal); Z37.0 Single live birth; O98.52 Other viral diseases complicating childbirth; E66.9 Obesity, unspecified; B00.9 Herpesviral infection, unspecified; O76 Abnormality in fetal heart rate and rhythm complicating labor and delivery; Z3A.39 39 weeks gestation of pregnancy; Z79.82 Long term (current) use of aspirin; Z79.899 Other long term (current) drug therapy
CPT/HCPCS: 59025; 59050; 80048; 85025; 86780; 86850; 86900; 86901; 99221; J7040; J7120; A4216; G0378